=== PATIENT | male | born 1965 | race African-American/Black ===

== ENCOUNTER 2020-09-29 10:14 | Emergency (ER) | payer OTHER ==
[~2020-09-29] VITALS: Ht 182.9 cm; Wt 97.0 kg
[2020-09-29] MEDS ORDERED: TETANUS, DIPHTHERIA, PERTUSSIS VAC/PF 0.5ML (>7YR OLD) IM ONE (11:00)
[2020-09-29] MEDS ORDERED: HYDROCODONE/ACETAMINOPHEN 10/325MG TABLET PO ONE (11:00)
[2020-09-29] MEDS ORDERED: IBUP-2028 MT (14:22)
[2020-09-29] MEDS ORDERED: TOPUD MT (14:22)
[2020-09-29 15:25] VITALS: BP 155/100
== END 2020-09-29 15:30 | disposition home or self-care (01) ==
LOC: ER 10:14
DX: S82.491A Other fracture of shaft of right fibula, initial encounter for closed fracture (principal); S80.11XA Contusion of right lower leg, initial encounter; I10 Essential (primary) hypertension; V03.00XA Pedestrian on foot injured in collision with car, pick-up truck or van in nontraffic accident, initial encounter; Y93.89 Activity, other specified; Y92.512 Supermarket, store or market as the place of occurrence of the external cause; Y99.8 Other external cause status
CPT/HCPCS: 73070; 73590; 76881; 90471; 90715; 99284; A4217